=== PATIENT | female | born 1975 | race Caucasian/White ===

== ENCOUNTER 2019-10-31 16:18 | Emergency (ER) | payer BC ==
[2019-10-31 17:37] LABS: Urine Blood NEGATIVE (NEG); Urine Glucose NEGATIVE (NEG); Urine Protein NEGATIVE (NEG); Urine Specific Gravity 1.025 (1.005-1.030); Urine pH 5.5 (5.0-7.0)
--- NOTE | 2019-10-31 17:44 | RAD REPORT ---
EXAM DESCRIPTION: CT - Stone Protocol - 10/31/2019 5:20 pm CLINICAL HISTORY: Abdominal pain. COMPARISON: 2016 TECHNIQUE: Computed axial tomography of the abdomen pelvis was obtained without oral or IV contrast. Lack of IV and oral contrast limits evaluation of solid organs, bowel, and vessels. Coronal reformat jamia images were obtained and reviewed. All CT scans are performed using dose optimization technique as appropriate and may include automated exposure control or mA/KV adjustment according to patient size. FINDINGS: A renal calculus is not seen. An ureteral calculus is not noted. A bladder calculus is not present. Postsurgical changes of a gastric bypass The liver, pancreas and adrenals appear grossly normal. Splenic granulomata are present. There is no evidence of diverticulitis Tiny umbilical hernia Increased density is present within the left anterior subcutaneous tissue of mid abdomen Postsurgical changes involve the jejunum. IMPRESSION: Negative for a genitourinary calculus Increased density is present within the left anterior subcutaneous tissue of mid abdomen which may in dicate a cellulitis or be related to the prior surgery.
[2019-10-31 18:10] LABS: Absolute Lymphocytes (CBC) 2.3 K/uL (0.7-4.9); Basophils % 0.7 % (0-1.3); Hematocrit 40.6 % (36.0-45.0); Lymphocytes % 26.3 % (15.3-44.8); MPV 10.6 fL (7.6-11.3); RBC Red Blood Cell Count 4.79 M/uL (3.86-4.86)
[2019-10-31] MEDS ORDERED: NA CHLORIDE 0.9% 1,000 ML ONE (18:15)
[2019-10-31 19:02] LABS: Albumin 3.6 g/dL (3.4-5.0); Bilirubin Direct 0.1 mg/dL (0-0.2); Bilirubin Total 0.4 mg/dL (0.2-1.0); Potassium 3.9 mmol/L (3.5-5.1); Protein, Total 7.1 g/dL (6.4-8.2)
--- NOTE | 2019-10-31 19:41 | RAD REPORT ---
EXAM DESCRIPTION: CT - Chest For Pe Angio - 10/31/2019 7:33 pm CLINICAL HISTORY: Chest pain COMPARISON: 2008 TECHNIQUE: Dynamically enhanced axial 3 mm thick images of the chest were obtained during administra tion of <100> mL Isovue 370 IV contrast. Coronal and oblique reconstruction images were generated and reviewed. Exam utilizes a protocol for optimal evaluation of pulmonary arterial tree. Maximum intensity projections 3D imaging was utilized All CT scans are performed using dose optimization technique as appropriate and may include automated exposure control or mA/KV adjustment according to patient size. FINDINGS: A pulmonary embolus is not seen. A thoracic aortic aneurysm is not noted. A pleural effusion is not seen. A pericardial effusion is not seen. A lung consolidation is not present. IMPRESSION: Negative for a pulmonary embolism.
--- NOTE | 2019-10-31 19:59 | EDPHYS ---
Physician Documentation [facility] Name: Fidelina Bright Age: 43 yrs Sex: Female : 1975 Arrival Date: 10/31/2019 Time: 16:21 Bed 30 Private MD: ED Physician Ladarius Ness HPI: 10/31 18:23 This 43 yrs old Female presents to ER via Ambulatory with complaints of Flank tonya Pain. 18:23 The patient complains of pain in the left mid back. The pain radiates to the left mid tonya back. Onset: The symptoms/episode began/occurred 2 day(s) ago. Modifying factors: The symptoms are alleviated by nothing. Associated signs and symptoms: The patient has no apparent associated signs or symptoms. Severity of pain: At its worst the pain was mild in the emergency department the pain is unchanged. The patient has not experienced similar symptoms in the past. 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 - Social history:: Smoking status: Patient/guardian denies using tobacco. - Ebola Screening: : Patient denies exposure to infectious person Patient denies travel to an Ebola-affected area in the 21 days before illness onset. ROS: 18:24 Constitutional: Negative for fever, chills, and weight loss, Eyes: Negative for injury, tonya pain, redness, and discharge, ENT: Negative for injury, pain, and discharge, Neck: Negative for injury, pain, and swelling, Cardiovascular: Negative for chest pain, palpitations, and edema, Respiratory: Negative for shortness of breath, cough, wheezing, and pleuritic chest pain, : Negative for injury, bleeding, discharge, and swelling, MS/Extremity: Negative for injury and deformity, Skin: Negative for injury, rash, and discoloration, Neuro: Negative for headache, weakness, numbness, tingling, and seizure, Psych: Negative for depression, anxiety, suicide ideation, homicidal ideation, and hallucinations, Allergy/Immunology: Negative for hives, rash, and allergies, Endocrine: Negative for neck swelling, polydipsia, polyuria, polyphagia, and marked weight changes, Hematologic/Lymphatic: Negative for swollen nodes, abnormal bleeding, and unusual bruising. 18:24 Abdomen/GI: Positive for abdominal pain, of the posterior aspect of left lateral abdomen and left upper quadrant. Exam: 18:24 Constitutional: This is a well developed, well nourished patient who is awake, alert, tonya and in no acute distress. Head/Face: Normocephalic, atraumatic. Eyes: Pupils equal round and reactive to light, extra-ocular motions intact. Lids and lashes normal. Conjunctiva and sclera are non-icteric and not injected. Cornea within normal limits. Periorbital areas with no swelling, redness, or edema. ENT: Nares patent. No nasal discharge, no septal abnormalities noted. Tympanic membranes are normal and external auditory canals are clear. Oropharynx with no redness, swelling, or masses, exudates, or evidence of obstruction, uvula midline. Mucous membranes moist. Neck: Trachea midline, no thyromegaly or masses palpated, and no cervical lymphadenopathy. Supple, full range of motion without nuchal rigidity, or vertebral point tenderness. No Meningismus. Chest/axilla: Normal chest wall appearance and motion. Nontender with no deformity. No lesions are appreciated. Cardiovascular: Regular rate and rhythm with a normal S1 and S2. No gallops, murmurs, or rubs. Normal PMI, no JVD. No pulse deficits. Respiratory: Lungs have equal breath sounds bilaterally, clear to auscultation and percussion. No rales, rhonchi or wheezes noted. No increased work of breathing, no retractions or nasal flaring. Abdomen/GI: Soft, non-tender, with normal bowel sounds. No distension or tympany. No guarding or rebound. No evidence of tenderness throughout. Back: No spinal tenderness. No costovertebral tenderness. Full range of motion. Skin: Warm, dry with normal turgor. Normal color with no rashes, no lesions, and no evidence of cellulitis. MS/ Extremity: Pulses equal, no cyanosis. Neurovascular intact. Full, normal range of motion. Neuro: Awake and alert, GCS 15, oriented to person, place, time, and situation. Cranial nerves II-XII grossly intact. Motor strength 5/5 in all extremities. Sensory grossly intact. Cerebellar exam normal. Normal gait. Psych: Awake, alert, with orientation to person, place and time. Behavior, mood, and affect are within normal limits. 18:26 Musculoskeletal/extremity: DVT Exam: No signs of deep vein thrombosis. no pain, no tonya swelling, no tenderness, negative Homans' sign noted on exam, no appreciated bluish discoloration, no erythema, no increased warmth. Vital Signs: 16:57 BP 112 / 84; Pulse 89; Resp 15; Temp 97.5(TE); Pulse Ox 98% on R/A; Weight 113.85 kg; aj1 Height 5 ft. 6 in. (167.64 cm); Pain 4/10; 17:30 BP 112 / 65; Pulse 65; Resp 16; Pulse Ox 100% ; Pain 3/10; vc 18:26 BP 111 / 68; Pulse 66; Resp 16; Temp 98.1(O); Pulse Ox 100% on R/A; Pain 2/10; vc 19:30 BP 121 / 56; Pulse 67; Resp 17; Pulse Ox 100% on R/A; tr5 16:57 Body Mass Index 40.51 (113.85 kg, 167.64 cm) aj1 MDM: 17:01 Patient medically screened. [facility] 18:26 Data reviewed: vital signs, nurses notes, lab test result(s), radiologic studies. [facility] 10/31 17:03 Order name: Basic Metabolic Panel [facility] 10/31 17:03 Order name: CBC with Diff [facility] 10/31 17:03 Order name: Creatinine for Radiology; Complete Time: 19:19 [facility] 10/31 17:03 Order name: Hepatic Function; Complete Time: 19:19 [facility] 10/31 17:03 Order name: Lipase; Complete Time: 19:19 [facility] 10/31 17:03 Order name: Urine Culture [facility] 10/31 17:03 Order name: CT Stone Protocol; Complete Time: 18:10 [facility] 10/31 17:03 Order name: Basic Metabolic Panel; Complete Time: 19:19 [facility] 10/31 17:03 Order name: CBC with Automated Diff; Complete Time: 18:22 [facility] 10/31 17:14 Order name: Urine Dipstick--Ancillary (enter results) 10/31 18:22 Order name: D-Dimer; Complete Time: 18:48 [facility] 10/31 18:49 Order name: CT Chest For PE Angio; Complete Time: 19:55 [facility] 10/31 17:03 Order name: IV Saline Lock; Complete Time: 18:09 [facility] 10/31 17:03 Order name: Labs collected and sent; Complete Time: 18:09 [facility] 10/31 17:03 Order name: Urine Dipstick-Ancillary (obtain specimen); Complete Time: 18:08 [facility] Administered Medications: 18:26 Drug: NS 0.9% 1000 ml Route: IV; Rate: 1 bolus; Site: right antecubital; vc 18:44 Follow up: Response: No adverse reaction vc Disposition: 10/31/19 19:58 Discharged to Home. Impression: Abdominal tenderness, Low back pain - left flank pain. - Condition is Stable. - Discharge Instructions: Abdominal Pain, Adult, Back Pain, Adult, Nausea and Vomiting, Adult, Abdominal Pain, Adult, [id number], Back Pain, Adult, Suxh-[id number]-Ubon. - Prescriptions for Tylenol- Codeine #3 300-30 mg Oral Tablet - take 2 tablets by ORAL route every 6 hours As needed; 20 tablet. Cyclobenzaprine 5 mg Oral Tablet - take 1 tablet by ORAL route 3 times per day As needed; 15 tablet. - Medication Reconciliation Form, Thank You Letter, Antibiotic Education, Prescription Opioid Use form. - Follow up: Private Physician; When: 2 - 3 days; Reason: Recheck today's complaints, Continuance of care, Re-evaluation by your physician. - Problem is new. - Symptoms have improved. Signatures: Dispatcher [employer] EDLizz Nicholosn RN RN aj1 Ladarius Ness MD MD cha Rodriguez, Tommie, RN RN tr5 Simin Fair RN RN vc Corrections: (The following items were deleted from the chart) 20:31 19:58 10/31/2019 19:58 Discharged to Home. Impression: Abdominal tenderness; Low back tr5 pain - left flank pain. Condition is Stable. Forms are Medication Reconciliation Form, Thank You Letter, Antibiotic Education, Prescription Opioid Use. Follow up: Private Physician; When: 2 - 3 days; Reason: Recheck today's complaints, Continuance of care, Re-evaluation by your physician. Problem is new. Symptoms have improved. [facility]
--- NOTE | 2019-10-31 19:59 | ER ---
Nurse's Notes [facility] Name: Fidelina Bright Age: 43 yrs Sex: Female : 1975 Arrival Date: 10/31/2019 Time: 16:21 Bed 30 Private MD: Diagnosis: Abdominal tenderness;Low back pain-left flank pain Presentation: 10/31 16:54 Presenting complaint: Patient states: "I had gastric bypass 3 weeks ago, and now I have aj1 severe pain across my back, dark urine and small amount of blood on toilet paper." Pt reports that symptoms began 2 days ago. Transition of care: patient was not received from another setting of care. Onset of symptoms was October 29, 2019. Risk Assessment: Do you want to hurt yourself or someone else? Patient reports no desire to harm self or others. Initial Sepsis Screen: Does the patient meet any 2 criteria? No. Patient's initial sepsis screen is negative. Does the patient have a suspected source of infection? Yes: Dysuria/Frequency/Urgency/UTI. Care prior to arrival: None. 16:54 Method Of Arrival: Ambulatory [facility] 16:54 Acuity: STANTON 3 aj1 Triage Assessment: 17:30 General: Appears in no apparent distress. Behavior is calm, cooperative. Pain: vc Complains of pain in mid back area, left mid back and right mid back Pain does not radiate. Pain currently is 3 out of 10 on a pain scale. EENT: No signs and/or symptoms were reported regarding the EENT system. Neuro: Level of Consciousness is awake, alert, obeys commands, Oriented to person, place, time. Cardiovascular: Capillary refill < 3 seconds. Respiratory: Airway is patent Respiratory effort is even, unlabored. GI: Reports lower abdominal pain. : Reports she is only able to void a small amount at a time and when she wipes there is a small amount of blood on the toilet paper. Derm: Skin is intact, is healthy with good turgor, Skin is dry, Skin is pink, warm \\T\\ dry. Musculoskeletal: Range of motion: intact in all extremities. 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 - Social history:: Smoking status: Patient/guardian denies using tobacco. - Ebola Screening: : Patient denies exposure to infectious person Patient denies travel to an Ebola-affected area in the 21 days before illness onset. Screenin:30 Abuse screen: Denies threats or abuse. Nutritional screening: No deficits noted. vc Patient had gastric bypass on October 03 . Tuberculosis screening: No symptoms or risk factors identified. Fall Risk None identified. Assessment: 18:09 Reassessment: Patient is alert, oriented x 3, equal unlabored respirations, skin vc warm/dry/pink. Patient states symptoms have not improved. 18:26 Reassessment: Patient and/or family updated on plan of care and expected duration. Pain vc level reassessed. Patient states she does not want any pain medication. given warm towel to roll up and place behind back.. 19:30 Reassessment: Patient appears in no apparent distress at this time. Patient and/or tr5 family updated on plan of care and expected duration. Pain level reassessed. Patient is alert, oriented x 3, equal unlabored respirations, skin warm/dry/pink. Vital Signs: 16:57 BP 112 / 84; Pulse 89; Resp 15; Temp 97.5(TE); Pulse Ox 98% on R/A; Weight 113.85 kg; aj1 Height 5 ft. 6 in. (167.64 cm); Pain 4/10; 17:30 BP 112 / 65; Pulse 65; Resp 16; Pulse Ox 100% ; Pain 3/10; vc 18:26 BP 111 / 68; Pulse 66; Resp 16; Temp 98.1(O); Pulse Ox 100% on R/A; Pain 2/10; vc 19:30 BP 121 / 56; Pulse 67; Resp 17; Pulse Ox 100% on R/A; tr5 16:57 Body Mass Index 40.51 (113.85 kg, 167.64 cm) aj ED Course: 16:21 Patient arrived in ED. as 16:56 Triage completed. aj1 16:57 Arm band placed on right wrist. aj1 17:01 Ladarius Ness MD is Attending Physician. [facility] 17:[address] via wheelchair. vm2 17:22 CT Stone Protocol In Process Unspecified. EDMS 17:22 Patient has correct armband on for positive identification. Bed in low position. Call vc light in reach. Pulse ox on. NIBP on. Warm blanket given. 18:07 Simin Fair, RN is Primary Nurse. vc 18:08 Urine Culture Sent. vc 18:08 Basic Metabolic Panel Sent. vc 18:08 CBC with Diff Sent. vc 18:09 Creatinine for Radiology Sent. vc 18:09 Hepatic Function Sent. vc 18:09 Lipase Sent. vc 18:57 Radiology exam delayed due to lab results not completed at this time. (BUN/Creatinine). nj 19:33 CT Chest For PE Angio In Process Unspecified. EDMS 20:30 No provider procedures requiring assistance completed. IV discontinued. tr5 Administered Medications: 18:26 Drug: NS 0.9% 1000 ml Route: IV; Rate: 1 bolus; Site: right antecubital; vc 18:44 Follow up: Response: No adverse reaction vc Outcome: 19:58 Discharge ordered by . [facility] 20:30 Discharged to home ambulatory. tr5 20:30 Condition: stable 20:30 Discharge instructions given to patient, Instructed on discharge instructions, follow up and referral plans. medication usage, Demonstrated understanding of instructions, follow-up care, medications, Prescriptions given X 2. 20:31 Patient left the ED. tr5 Signatures: Dispatcher [employer] EDLizz Nicholson RN RN aj1 Ladarius Ness MD MD cha Martinez, Amelia as Jordan, Nathan nj McGuire, Victoria 2 Aman Clement RN RN tr5 Simin Fair, GONZALO RN vc Corrections: (The following items were deleted from the chart) 19:18 17:30 Pain: Complains of pain in mid back area, left mid back and right mid back Pain vc does not radiate. Pain currently is 3 out of 10 on a pain scale. vc
[2019-10-31 20:55] VITALS: TEMP 98.1; O2SAT 100
[2019-10-31 20:58] VITALS: BP 121/56
== END 2019-10-31 20:31 | disposition home or self-care (01) ==
LOC: ER 16:18
DX: M54.5 Low back pain (principal); Z88.5 Allergy status to narcotic agent; Z88.6 Allergy status to analgesic agent
CPT/HCPCS: 87088; 85025; 87086; 80048; 36415; 85379; 80076; 81003; 83690; 76377; 71275; 74176; 99284; Q9967; J7030

== ENCOUNTER 2022-02-25 07:07 | Day surgery (SDC) | payer BC, OTHER ==
[2022-02-24 10:46] LABS: Absolute Lymphocytes (CBC) 1.4 K/uL (0.7-4.9); Hematocrit 38.2 % (36.0-45.0); Lymphocytes % 32.4 % (15.3-44.8); RBC Red Blood Cell Count 4.27 M/uL (3.86-4.86)
[2022-02-24 10:58] LABS: Potassium 3.9 mmol/L (3.5-5.1)
--- NOTE | 2022-02-24 10:58 | RAD REPORT ---
EXAM DESCRIPTION: RAD - Chest Pa And Lat (2 Views) - 02/24/2022 10:39 am CLINICAL HISTORY: Pre op pending mass removal COMPARISON: Chest Pa And Lat (2 Views) dated 01/12/2017; CHEST PA AND LAT 2 VIEW dated 09/15/2012; CH EST PA AND LAT 2 VIEW dated 12/22/2010 FINDINGS: Lines: None. Lungs: No evidence of edema or pneumonia. Pleural: No significant pleural effusions or pneumothorax. Cardiac: The heart size is within normal limits. Bones: No acute fractures. ACDF in the cervical spine. Other: IMPRESSION: No acute cardiopulmonary disease.
--- NOTE | 2022-02-24 12:33 | EKG ---
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
[2022-02-25] MEDS ORDERED: Ringers Lactate 1,000 ML IV ONE (07:25)
[2022-02-25] MEDS ORDERED: CEFAZOLIN SODIUM 1 GM/VIAL ONE (07:43)
[2022-02-25] MEDS ORDERED: propofoL 200 MG/20 ML VIAL IV ONE (08:27)
[2022-02-25] MEDS ORDERED: LIDOCAINE 2% MPF 5 ML VIAL ONE (08:28)
[2022-02-25] MEDS ORDERED: ROCURONIUM 50 MG/5 ML VIAL IV ONE (08:28)
[2022-02-25] MEDS ORDERED: FENTANYL CITR 100 MCG/2 ML ONE (08:28)
[2022-02-25] MEDS ORDERED: MIDAZOLAM HCL 2 MG/2 ML INJ ONE (08:28)
[2022-02-25] MEDS ORDERED: KETOROLAC 30 MG/ML INJ ONE (08:36)
[2022-02-25] MEDS ORDERED: EPHEDRINE SULF 50 MG/ML VIAL ONE (09:17)
[2022-02-25] MEDS ORDERED: dexAMETHasone 10 MG/ML VIAL ONE (09:50)
[2022-02-25] MEDS ORDERED: ONDANSETRON 4 MG/2 ML VIAL ONE ×3 (09:50→10:55)
--- NOTE | 2022-02-25 09:52 | P.BOP ---
Preoperative diagnosis: Forehead Basal cell carcinoma, Back subQ tender mass Postoperative diagnosis: same Primary procedure: 1. Wide excision Forehead Basal cell carcinoma with frozen Secondary procedure: 2. Excisional bx of lower back SubQ mass Taping Supervisor: REYNALDO LIM (KAIAKO KOHANGA REO) Estimated blood loss: <10cc Specimen: basal cell carcinoma, subq mass Findings: Free margins by Dr Amaya Anesthesia: General Complications: None Transferred to: Recovery Room Condition: Good
[2022-02-25] MEDS: FENTANYL CITR 100 MCG/2 ML ONE ×6 (10:15→10:40)
[2022-02-25] MEDS ORDERED: DIPHENHYDRAMINE 50 MG/ML VIAL ONE (11:04)
[2022-02-25] MEDS ORDERED: NALOXONE 0.4 MG/ML VIAL ONE (11:47)
[2022-02-25 12:30] VITALS: O2SAT 100
[2022-02-25 12:52] VITALS: BP 111/59; TEMP 96.9
--- NOTE | 2022-02-25 13:55 | OP ---
Date of Procedure: 02/25/2022 Surgeon: Demetrius Romeo MD Cattle Sticker: Mychal Burnette Preoperative Diagnoses: 1.Forehead basilar carcinoma. 2.Lower back subcutaneous tender mass. Postoperative Diagnoses: 1.Forehead basilar carcinoma. 2.Lower back subcutaneous tender mass. Procedures: 1.Wide excision of forehead basal cell carcinoma with frozen section. 2.Excision biopsy of lower back subcutaneous mass. Anesthesia: General plus local. Specimen: Basal cell carcinoma and subcutaneous mass. Finding: Free margins of basal carcinoma as per Dr. Amaya, pathologist. Complications: None. Disposition: Transferred to recovery in stable condition. Indication: This is the case of a 46-year-old patient with 2 problems. She comes initially with a s ubcutaneous mass in the lower back. She has previous surgery there as spinal surgery. She went to [facility] neurosurgeon recently and it was told by them that this is not related to the previous surgery. I t is just a tender subcutaneous mass, so she wants me to excise that. At the same time, she had a le jagruti on the forehead that her primary doctor asked her to have it checked since it was suspicious. W e did an incisional biopsy initially, shows basilar carcinoma and now she is going for wide excision of forehead basal cell carcinoma and she wants both of them to be done at the same time. The benefit s, alternatives, and risks of each procedure were done individually fully explained, which include, b ut not limited to infection, bleeding, damage to adjacent structures, anesthesia complication, recurr ence, IA, and even . She also understands this may not relieve any symptoms. She might need mo re than one surgical intervention. Since one of them is cancer, we proceeded to keep our instruments , ours scrubs, and our set up apart to avoid cross contamination during the entire case. We started with the forehead region since we will be waiting for frozen section. Areas were marked by me and th e patient in the holding room. Procedure In Detail: The patient was brought to the operating room, placed in supine position. Anes thesia was done without complication. The patient was placed in lateral decubitus position with prop er protection. The area of the forehead and lower back was prepped and draped in the usual sterile f ashion. Once again, we got all the settings apart to avoid cross contamination. We started first wi th a wedge excision of basal cell carcinoma with gross negative margins all the way down to fatty tis mychal. The mass was completely excised and sent to pathology for frozen section and came back negative margins with basal cell carcinoma completely out. The area was closed after hemostasis and local an esthesia was applied and after irrigation. We proceeded to close this with 3-0 chromic and skin with nylon. We did not use Steri-Strips on her or tape since the patient has reaction to tape and she pr eferred no adhesive. Pressure dressing was applied. No bleeding. The patient tolerated the procedu re well. Sponge count and instrument counts correct. Now, we changed our set up including also our personal scrubs and also instruments and we went to the lower back area and the lower back area shows once again a palpable subcutaneous mass. We made a wedge incision to include part of the skin since the scar tissue nearby. We went all the way down, found the mass. Not sure exactly if this is part of the scar tissue, suture granuloma, or just subcutaneous mass with remarkable movement. There is no bone or tendon exposed. No hardware exposed. The area was irrigated, closed with 3-0 chromic in the subcutaneous tissue and once again nylon on the skin since we do not want to use any Steri-Strips on her. She does not like to use Dermabond neither. The dressings were applied. After that, spong e count and instrument counts correct. Local anesthesia was applied in advance, and irrigation and h emostasis were done during the case. The patient tolerated each procedure well. The patient sent to recovery in stable condition. Sponge count and instrument counts correct. RIYA/AMRIT Voice ID: [id number] Report ID: [id number]
--- NOTE | 2022-02-25 13:55 | DS ---
Date of Discharge: 02/25/2022 Diagnosis: Forehead basal cell carcinoma and subcutaneous back end engineer mass. Procedures: Wide excision of forehead basal cell carcinoma with frozen and excision biopsy of lower back subcutaneous mass. Disposition: Home. Activity: As tolerated. No heavy lifting. Plan: Follow up in my office in 1 week. Call for appointment at [phone]. Keep area dry for 48 rohini rs, then may shower. RIYA/AMRIT Voice ID: [id number] Report ID: [id number]
== END 2022-02-25 12:45 | disposition home or self-care (01) ==
LOC: OR 07:07
PROVIDERS: ATTEND Surgery
PROC: 0JB70ZZ Excision of Back Subcutaneous Tissue and Fascia, Open Approach (ICD-10-PCS; 2022-02-25)
PROC: 0JB10ZZ Excision of Face Subcutaneous Tissue and Fascia, Open Approach (ICD-10-PCS; principal; 2022-02-25 08:45)
DX: C44.319 Basal cell carcinoma of skin of other parts of face (principal); R22.2 Localized swelling, mass and lump, trunk; Z20.822 Contact with and (suspected) exposure to COVID-19
CPT/HCPCS: 93005; 85025; 80048; 36415; 88331; 88332; 88305 ×2; 71046; 11642; 11401; U0003; J2704; J2310; J1200; J2250; J3010 ×3; J1100; J7120; J2405 ×2; J0690